=== PATIENT | male | born 1990 | race Hispanic/Latino ===

== ENCOUNTER 2017-01-19 21:57 | Emergency (ER) | payer OTHER ==
[2017-01-19] MEDS ORDERED: Diphenoxylate HCl/Atropine Tablet ONE (22:57)
[2017-01-19] MEDS ORDERED: Ondansetron ODT 4 MG TAB ONE (22:57)
== END 2017-01-19 23:21 | disposition left against medical advice (07) ==
LOC: MADERS 21:57
DX: K52.9 Noninfective gastroenteritis and colitis, unspecified (principal); I10 Essential (primary) hypertension
CPT/HCPCS: 99283; Q0162

== ENCOUNTER 2018-04-02 08:35 | Emergency (ER) | payer OTHER ==
[~2018-04-02 08:35] MED LIST: Donnatal Elixir 16.2 MG/5 ML UDCUP ONE
[2018-04-02] MEDS ORDERED: HYDROcodone/Acetaminophen 5/325 mg Tablet ONE (09:12)
[2018-04-02] MEDS ORDERED: Mag-Al Plus 1200 MG/1200 MG/120 MG/30 ML UDCUP ONE (09:13)
[2018-04-02] MEDS ORDERED: Donnatal Elixir 16.2 MG/5 ML UDCUP ONE (09:13)
[2018-04-02] MEDS ORDERED: Lidocaine Viscous Sol 2% 15 ml UD Cup ONE (09:13)
[2018-04-02 09:29] LABS: #Eosinphils 0.1 thou/uL (0.0-0.7); #Monocytes 0.5 thou/uL (0.11-0.59); #Neutrophils 5.1 thou/uL (1.40-6.50); %Basophils 0.5 % (0.0-1.0); %Eosinophils 0.9 % (0.0-10.0); %Lymphocytes 25.9 % (21.0-51.0); %Monocytes 6.4 % (0.0-10.0); %Neutrophils 66.3 % (42.0-75.0); Hemoglobin 16.4 g/dL (14.0-18.0); Mean Corpuscular HGB CONC 34.9 g/dL (32.0-36.0); Mean Corpuscular Hemoglobin 30.7 pg (27.0-31.0); Mean Corpuscular Volume 88.1 fL (78.0-98.0); Mean Platelet Volume 9.7 fL (7.4-10.4); Platelet Count 183 thou/uL (130-400); RBC Distribution Width 10.4 % (11.5-14.5); Red Blood Cell (RBC) Count 5.35 mill/uL (4.70-6.10); White Blood Cell (WBC) Count 7.6 thou/uL (4.8-10.8)
[2018-04-02 09:41] LABS: ALT (SGPT) 108 U/L (8-55); AST (SGOT) 27 U/L (5-34); Albumin 4.6 g/dL (3.5-5.0); Alkaline Phosphatase 61 U/L (40-150); Anion Gap 16 mmol/L (10-20); BUN (Urea Nitrogen) 15 mg/dL (8.9-20.6); Bilirubin, Total 0.6 mg/dL (0.2-1.2); Calc. Creatinine Clearance 0 mL/min (70-130); Calcium 9.3 mg/dL (7.8-10.44); Carbon Dioxide 24 mmol/L (22-29); Chloride 105 mmol/L (98-107); Estimated GFR-MDRD Greater than 90; Globulin 2.8 g/dL (2.4-3.5); Glucose 112 mg/dL (70-105); Lipase 16 U/L (8-78); Potassium 3.8 mmol/L (3.5-5.1); Protein, Total 7.4 g/dL (6.0-8.3); Sodium 141 mmol/L (136-145)
== END 2018-04-02 10:00 | disposition home or self-care (01) ==
LOC: MADERS 08:35
DX: K29.70 Gastritis, unspecified, without bleeding (principal); I10 Essential (primary) hypertension
CPT/HCPCS: 80053; 83690; 85025; 93005

== ENCOUNTER 2019-11-22 19:26 | Emergency (ER) | payer OTHER | END 2019-11-22 20:14 | disposition home or self-care (01) | LOC: MADERS 19:26 | DX: J30.1 Allergic rhinitis due to pollen (principal); F17.220 Nicotine dependence, chewing tobacco, uncomplicated | CPT/HCPCS: 99282 ==

== ENCOUNTER 2020-03-27 00:10 | Emergency (ER) | payer OTHER | END 2020-03-27 01:35 | disposition home or self-care (01) | LOC: MADERS 00:10 | DX: R42 Dizziness and giddiness (principal); J30.2 Other seasonal allergic rhinitis; F17.220 Nicotine dependence, chewing tobacco, uncomplicated | CPT/HCPCS: 99284 ==

== ENCOUNTER 2020-10-21 06:13 | Emergency (ER) | payer OTHER ==
[2020-10-21] MEDS ORDERED: Mag-Al Plus 1200 MG/1200 MG/120 MG/30 ML UDCUP ONE (06:35)
[2020-10-21] MEDS ORDERED: Lidocaine Viscous Sol 2% 15 ml UD Cup ONE (06:35)
[2020-10-21] MEDS ORDERED: Ondansetron ODT 4 MG TAB ONE (06:39)
[2020-10-21] MEDS ORDERED: HYDROcodone/Acetaminophen 5/325 mg Tablet ONE (07:06)
== END 2020-10-21 07:20 | disposition home or self-care (01) ==
LOC: MADERS 06:13
DX: K29.00 Acute gastritis without bleeding (principal); K21.9 Gastro-esophageal reflux disease without esophagitis; F17.220 Nicotine dependence, chewing tobacco, uncomplicated; Z79.899 Other long term (current) drug therapy
CPT/HCPCS: 99283; Q0162

== ENCOUNTER 2021-07-24 03:24 | Emergency (ER) | payer SELFPAY ==
[2021-07-24] MEDS ORDERED: Ondansetron ODT 4 MG TAB ONE (03:36)
[2021-07-24] MEDS ORDERED: Mag-Al Plus 1200 MG/1200 MG/120 MG/30 ML UDCUP ONE (03:51)
[2021-07-24] MEDS ORDERED: Lidocaine Viscous Sol 2% 15 ml UD Cup ONE (03:51)
[2021-07-24] MEDS ORDERED: Morphine 4 MG/ML VIAL ONE (04:11)
[2021-07-24] MEDS ORDERED: Prochlorperazine 10 MG/2 ML VIAL ONE (04:12)
== END 2021-07-24 04:56 | disposition home or self-care (01) ==
LOC: MADERS 03:24
DX: K29.70 Gastritis, unspecified, without bleeding (principal); F17.220 Nicotine dependence, chewing tobacco, uncomplicated; I10 Essential (primary) hypertension; K21.9 Gastro-esophageal reflux disease without esophagitis
CPT/HCPCS: 96372; 99283; J0780; J2270; Q0162

== ENCOUNTER 2022-06-06 12:08 | Emergency (ER) | payer BC | END 2022-06-06 13:30 | disposition home or self-care (01) | LOC: MADERS 12:08 | DX: S60.222A Contusion of left hand, initial encounter (principal); F17.220 Nicotine dependence, chewing tobacco, uncomplicated; K21.9 Gastro-esophageal reflux disease without esophagitis; I10 Essential (primary) hypertension; W31.89XA Contact with other specified machinery, initial encounter ==